=== PATIENT | female | born 1960 | race Caucasian/White ===

== ENCOUNTER 2024-05-17 08:15 | Outpatient (CLI) | payer BC, SELFPAY ==
--- NOTE | ~2024-05-17 | US_ITS ---
US abdomen complete EXAMINATION: US Abdomen Complete INDICATION: Elevated liver function tests PROCEDURE: Realtime High Resolution abdomen ultrasound. COMPARISON: No prior studies for comparison FINDINGS: Gallbladder within normal limits. No gallstones, pericholecystic fluid, gallbladder wall t hickening or biliary dilatation. Common bile duct measures 5 mm. Liver echotexture is increased consistent with fatty infiltration. There is fatty sparing near the fa lciform ligament.. Pancreas within normal limits. Pancreatic tail is obscured by bowel gas. Spleen is unremarkeable. Renal echotexture is within normal limits bilaterally without hydronephrosis, cont our deforming mass or renal stone. There is a 1 cm left renal cyst. Right kidney measures 10.5 cm. Le ft kidney measures 9.8 cm. Visualized aspects of the aorta and IVC are within normal limits. Portal vein is patent. No sonograph ic Carreon's sign indicated by the technologist. IMPRESSION: 1: Fatty infiltration of the liver. Reviewed, dictated and finalized at location [] [employer]
== END 2024-05-17 08:16 | disposition home or self-care (01) ==
PROVIDERS: PCP Family Medicine Adolescent Medicine; Visit Provider Family Medicine Adolescent Medicine
DX: R79.89 Other specified abnormal findings of blood chemistry (principal); K76.0 Fatty (change of) liver, not elsewhere classified
CPT/HCPCS: 76700